=== PATIENT | female | born 1950 | race Caucasian/White ===

== ENCOUNTER 2019-02-08 07:35 | Emergency (ER) | payer MEDICARE ==
[~2019-02-08] VITALS: Ht 160 cm; Wt 51.5 kg
[~2019-02-08 07:35] MED LIST: CYCL10TA9 PO; DALF10TA PO; DIAZ-345 PO; FLUO20CA42 PO; HYDR1TAB8 OP; OLME20TA21 PO; PRD20T PO; ROPI4TAB; SYNTHYROID PO; TIZA4CAP; TRM50T PO
[2019-02-08] MEDS ORDERED: LIDOCAINE 1% INJ 20 ML 20 ML VIAL ONE (07:36)
--- NOTE | 2019-02-08 08:03 | ED Lower Extremity ---
General Chief Complaint: Laceration Stated Complaint: LT LEG LAC Nursing Triage Note: Patient reports she fell out of her wheelchair this morning and cut her left leg on the corner of the refrigerator. Nursing Sepsis Screen: No Definite Risk Source: patient, EMS Exam Limitations: clinical condition History of Present Illness Date Seen by Provider: Feb 08, 2019 Time Seen by Provider: 07:36 Initial Comments The patient is a very pleasant 68-year-old female with a history of MS who states that she dropped a can of with cream and it scraped the left side of her lower leg causing a laceration. They were having a hard time stopping the bleeding so called EMS for transport to the emergency department. Initially the story was that the patient had fallen out of her wheelchair but this is not true. She is up-to-date with her tetanus immunization status. She has no other complaints. She states that she came here to have some sutures placed in her leg to stop the bleeding. She is alert, calm, and appears to be in no distress at this time. The patient is currently on hospice and her hospice radiologist diagnostic is present in the emergency department. Onset: just prior to arrival Pain/Injury Location: left leg Method of Injury: direct blow (from whipped cream can) Allergies and Home Medications Allergies Coded Allergies: Penicillins (Unverified Allergy, 12/07/09) Home Medications Benicar Hct 20 Mg Tablet, 1 EACH PO DAILY, (Reported) Cyclobenzaprine Hcl 10 Mg Tablet, 1 PO BID PRN, (Reported) Dalfampridine 10 Mg Tab.sr.12h, 1 PO Q12 HRS, (Reported) Diazepam 5 Mg Tablet, 1 PO PRN, (Reported) Fluoxetine Hcl 20 Mg Capsule, 1 PO HS, (Reported) Hydrocodone Bit/Ibuprofen 1 Each Tablet, 1-2 EACH OP Q 4 - 6 HRS PRN FOR PAIN Prescribed by: JACY REDD on 12/07/092042 Prednisone 20 Mg Tab, 1 PO PRN, (Reported) Ropinirole Hcl 4 Mg Tab.sr.24h, 1 HS, (Reported) Tizanidine Hcl 4 Mg Capsule, 1 2HS, (Reported) Tramadol Hcl 50 Mg Tab, 1 PO PRN ADNDHS, (Reported) [Synthyroid] , 1 PO DAILY, (Reported) Patient Home Medication List Home Medication List Reviewed: Yes Review of Systems Constitutional: no symptoms reported EENTM: no symptoms reported Respiratory: no symptoms reported Cardiovascular: no symptoms reported Gastrointestinal: no symptoms reported Genitourinary: no symptoms reported Musculoskeletal: no symptoms reported Skin: other (laceration to left lower leg) Psychiatric/Neurological: No Symptoms Reported All Other Systems Reviewed Negative Unless Noted: Yes Past Bqwskjv-Drjorn-Djzlrp Hx Past Med/Social Hx: Reviewed Nursing Past Med/Soc Hx Patient Social History Recent Foreign Travel: No Contact w/Someone Who Travel: No Recent Infectious Disease Expo: No Physical Exam Vital Signs Vital Signs - First Documented 02/08/19 07:36 Temp 36.4 Pulse 90 Resp 18 B/P (MAP) 140/85 (103) Pulse Ox 99 O2 Delivery Room Air Capillary Refill : Less Than 3 Seconds Height, Weight, BMI Height: '" Weight: lbs. oz. kg; 20.00 BMI Method: General Appearance: WD/WN, no apparent distress HEENT: PERRL/EOMI, TMs normal Neck: non-tender, full range of motion Cardiovascular: normal peripheral pulses, regular rate, rhythm, other (chronic lower extremity edema with 2+ pitting) Respiratory: chest non-tender, lungs clear, normal breath sounds Gastrointestinal: normal bowel sounds, non tender, soft Hips: bilateral hip non-tender, bilateral hip normal inspection, bilateral hip normal range of motion Legs: bilateral leg non-tender, bilateral leg normal inspection Knees: bilateral knee non-tender, bilateral knee normal inspection Ankles: bilateral ankle non-tender, bilateral ankle normal inspection Neurologic/Psychiatric: alert, normal mood/affect Skin: warm/dry, other (laceration to left lower lateral leg/high ankle approx 5cm in length with some mild venous oozing, b/l legs with some mottling/cool to touch/edema (baseline per patient and radiologist diagnostic)) Procedures/Interventions Wound Location: Lower Extremities Other Wound Location left lateral lower leg Wound Length (cm): 5 Wound's Depth, Shape: linear Wound Explored: clean Irrigated w/ Saline (ccs): 200 Anesthesia: 1% Lidocaine Volume Anesthetic (ccs): 4 Wound Debrided: minimal Suture: Monocryl Suture Size: 4-0 Number of Sutures: 7 Layer Closure?: 1 Number Deep Layer Sutures: 0 Sterile Dressing Applied?: Yes Progress The patient tolerated the repair very well. Hemostasis achieved. No complications. Progress/Results/Core Measures Results/Orders My Orders Orders - ARIC OVALLE DO Lidocaine 1% Inj 20 Ml (Xylocaine 1% Inj (02/08/19 07:36) Medications Given in ED Current Medications Medications Dose Ordered Sig/Kymberly Route Start Time Stop Time Status Last Admin Dose Admin Lidocaine HCl 20 ml STK-MED ONCE .ROUTE 02/08/19 07:36 02/08/19 07:38 DC 02/08/19 07:45 20 ML Vital Signs/I&O 02/08/19 07:36 Temp 36.4 Pulse 90 Resp 18 B/P (MAP) 140/85 (103) Pulse Ox 99 O2 Delivery Room Air Blood Pressure Mean: 103 POS Progress Progress Note : Progress Note @0805 - advised to have the sutures removed in 7-10 days and to return to the emergency department for new or worsening symptoms. The patient and her radiologist diagnostic expressed verbal understanding and agreement with the plan and she is stable for discharge at this time. Advised changing the wound dressing daily and applying a topical antibiotic such as Neosporin or bacitracin. Departure Impression Primary Impression: Laceration of left leg Disposition: 01 HOME, SELF-CARE Condition: Stable Departure-Patient Inst. Decision time for Depature: 08:08 Referrals: NO,LOCAL PHYSICIAN (PCP/Family) Primary Care Physician Patient Instructions: Laceration Repair With Stitches (DC) Add. Discharge Instructions: Removed your stitches in 7-10 days. Change the wound dressing daily. It is okay to apply topical antibiotic ointment such as Neosporin once daily. Return to the emergency Department immediately for concern of infection, new or worsening symptoms. ARIC OVALLE DO Feb 08, 2019 08:03 POS
[2019-02-08 08:38] VITALS: BP 133/83
== END 2019-02-08 08:49 | disposition home or self-care (01) ==
LOC: EDUNIT# 07:35 → ER FS 07:36
DX: S81.812A Laceration without foreign body, left lower leg, initial encounter (principal); Z88.0 Allergy status to penicillin; Z79.52 Long term (current) use of systemic steroids; W26.8XXA Contact with other sharp object(s), not elsewhere classified, initial encounter
CPT/HCPCS: 12002

== ENCOUNTER 2019-03-05 13:01 | Emergency (ER) | payer MEDICARE ==
[~2019-03-05] VITALS: Ht 160 cm; Wt 50.0 kg
[2019-03-05] MEDS ORDERED: LIDOCAINE/EPI 1%-1:100,000 (XYLOCAINE) 20ML INJ ONE (13:15)
[2019-03-05] MEDS ORDERED: LIDOCAINE/EPI 2% 1:100,00 (XYLOCAINE) 20 ML VIAL ONE (13:18)
--- NOTE | 2019-03-05 13:18 | ED Integumentary General ---
General Stated Complaint: LACERATION Source: patient Exam Limitations: no limitations History of Present Illness Date Seen by Provider: Mar 05, 2019 Time Seen by Provider: 13:15 Initial Comments Patient accidentally collided (while in her wheel chair) into the edge of a door while trying to cross the threshold at home. Pain and large cut to left leg. Denies other injury. Pt w Hx of MS and dependent on care of ADL's. Timing/Duration: just prior to arrival Allergies and Home Medications Allergies Coded Allergies: Penicillins (Unverified Allergy, 12/07/09) Home Medications Benicar Hct 20 Mg Tablet, 1 EACH PO DAILY, (Reported) Cyclobenzaprine Hcl 10 Mg Tablet, 1 PO BID PRN, (Reported) Dalfampridine 10 Mg Tab.sr.12h, 1 PO Q12 HRS, (Reported) Diazepam 5 Mg Tablet, 1 PO PRN, (Reported) Fluoxetine Hcl 20 Mg Capsule, 1 PO HS, (Reported) Hydrocodone Bit/Ibuprofen 1 Each Tablet, 1-2 EACH OP Q 4 - 6 HRS PRN FOR PAIN Prescribed by: JACY REDD on 12/07/092042 Prednisone 20 Mg Tab, 1 PO PRN, (Reported) Ropinirole Hcl 4 Mg Tab.sr.24h, 1 HS, (Reported) Tizanidine Hcl 4 Mg Capsule, 1 2HS, (Reported) Tramadol Hcl 50 Mg Tab, 1 PO PRN ADNDHS, (Reported) [Synthyroid] , 1 PO DAILY, (Reported) Patient Home Medication List Home Medication List Reviewed: Yes Review of Systems Review of Systems Constitutional: see HPI (baseline weakness and neuro deficits/ disorder) Respiratory: no symptoms reported Cardiovascular: no symptoms reported Musculoskeletal: other (pain right leg) Skin: see HPI, other (open laceration/wound right leg) Psychiatric/Neurological: See HPI (Hx MS) Past Jffdkgz-Vqktxt-Ziltcy Hx Past Med/Social Hx: Reviewed Nursing Past Med/Soc Hx Patient Social History 2nd Hand Smoke Exposure: No Recent Hopitalizations: No Seasonal Allergies Seasonal Allergies: No Past Medical History Surgeries: No Respiratory: No Cardiac: No Neurological: Yes Multiple Sclerosis Genitourinary: No Gastrointestinal: No Musculoskeletal: Yes (chronic right arm fracture, torn rotator cuff) Endocrine: No HEENT: No Cancer: No Psychosocial: No Integumentary: No Physical Exam Vital Signs Capillary Refill : General Appearance: WD/WN, no apparent distress Cardiovascular: regular rate, rhythm, no edema Respiratory: chest non-tender, lungs clear Extremities: other (large vertical laceration- right anterior tibia.....16cm. Superficial laceration -vertical post lower leg) Procedures/Interventions Wound Location: Lower Extremities Wound Length (cm): 16 Wound's Depth, Shape: linear, contused tissue Wound Explored: clean Irrigated w/ Saline (ccs): 240 Anesthesia: Lidocaine w/ Epi Volume Anesthetic (ccs): 12 Suture: Ethlion, Prolene Suture Size: 3-0 Number of Sutures: 16 Progress/Results/Core Measures Results/Orders My Orders Orders - ODALYS MUNGUIA DO Lidocaine/Epi 1% 1:100,000 (Xylocaine /E (03/05/19 13:15) Bacitracin Ointment (Bacitracin Ointment (03/05/19 21:00) Lidocaine/Epi 2% 1:100,000 (Xylocaine/Ep (03/05/19 13:18) Bacitracin Ointment (Bacitracin Ointment (03/05/19 13:19) Lidocaine/Epi 2% 1:100,000 (Xylocaine/Ep (03/05/19 13:30) Morphine Injection (Morphine Injection (03/05/19 13:42) Medications Given in ED Current Medications Medications Dose Ordered Sig/Kymberly Route Start Time Stop Time Status Last Admin Dose Admin Lidocaine/ Epinephrine 20 ml ONCE ONCE INJ 03/05/19 13:30 03/05/19 13:31 DC 03/05/19 13:58 20 ML Departure Impression Primary Impression: Laceration of leg not thigh, right Qualified Codes: S81.811A - Laceration without foreign body, right lower leg, initial encounter Disposition: HOME, SELF-CARE Condition: Improved Departure-Patient Inst. Referrals: NO,LOCAL PHYSICIAN (PCP/Family) Primary Care Physician ODALYS MUNGUIA DO Mar 05, 2019 13:18
[2019-03-05] MEDS ORDERED: BACITRACIN OINTMENT 28 GM TUBE ONE (13:19)
[2019-03-05] MEDS ORDERED: LIDOCAINE/EPI 2% 1:100,00 (XYLOCAINE) 20 ML VIAL INJ ONE (13:30)
[2019-03-05] MEDS ORDERED: morphine INJ 10 MG/ML 1ML (SYR OR VIAL) IM STA (13:42)
[2019-03-05 15:13] VITALS: BP 134/62
[2019-03-05] MEDS ORDERED: BACITRACIN OINTMENT 28 GM TUBE TOP SCH (21:00)
== END 2019-03-05 15:13 | disposition home or self-care (01) ==
LOC: EDUNIT# 13:01 → ER FS 13:02
DX: S81.811A Laceration without foreign body, right lower leg, initial encounter (principal); G35 Multiple sclerosis; Z88.0 Allergy status to penicillin; Z79.52 Long term (current) use of systemic steroids; W22.8XXA Striking against or struck by other objects, initial encounter; Y92.009 Unspecified place in unspecified non-institutional (private) residence as the place of occurrence of the external cause
CPT/HCPCS: 12005; 96372